=== PATIENT | female | born 2000 | race Caucasian/White ===

== ENCOUNTER 2019-08-22 14:22 | Emergency (ER) | payer BC, SELFPAY ==
[2019-08-22 14:28] VITALS: BP 144/80; PULSE 106; RESP 18; TEMP 37.3; O2SAT 99
--- NOTE | 2019-08-22 14:40 | ED.URI ---
HPI - URI/Sore Throat General Chief Complaint: Upper Respiratory Infection Stated Complaint: cough/sore throat/congestion/body aches Time Seen by Provider: 08/22/19 14:40 Source: patient and RN notes reviewed History of Present Illness HPI Narrative: Patient is a 18-year-old female presents the urgent care with complaints of cough, sore throat, sinus congestion, body aches. Patient states she has had chills and sweats without known fever. States her symptoms started 4 days ago and she cannot catch a break . 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 Patient has been using Mucinex and DayQuil without much relief. No other acute complaints. No acute distress noted. Patient read the plan of care. Related Data Home Medications Medication Instructions Recorded Confirmed HJ-HU-yavtnd/UE-nhmtgb-jwywbye cap PO 08/22/19 [Vicks DayQuil-NyQuil] guaifenesin [Mucinex] 1,200 mg PO Q12H 08/22/19 08/22/19 Allergies Allergy/AdvReac Type Severity Reaction Status Date / Time No Known Allergies Allergy Unknown Verified 08/22/19 14:34 Review of Systems Review of Systems: Narrative: CONSTITUTIONAL: Reports of chills and sweats EYES: Denies visual changes, redness, or discharge. ENT: Reports of rhinorrhea, sinus congestion, sore throat CARDIOVASCULAR: Denies chest pain, palpitations, or edema. RESPIRATORY: Reports of nonproductive cough without dyspnea GASTROINTESTINAL: Denies abdominal pain, nausea, vomiting, or diarrhea. GENITOURINARY: Denies dysuria or hematuria. SKIN: Denies rash or itching. MUSCULOSKELETAL: Denies back pain, joint pain, or myalgia. NEUROLOGIC: Denies headache, numbness, or weakness. All other systems reviewed are negative, except as documented in HPI. PMFSH Comments At the time of my signature, I reviewed and agree with the nursing past medical, surgical, social, and family history. There is no relevant family history pertinent to the patient complaint. Exam Narrative: Exam Narrative: GENERAL: This is a well-nourished, well-developed patient, in no apparent distress. HEAD: normocephalic, atraumatic. EYES: PERRL. Sclera clear/white. Vision is grossly intact. EARS: External ears normal, auditory canals clear and without drainage, TMs normal without perforation. Hearing grossly intact. NOSE: External nose normal with no obvious nasal discharge, nares without redness, no rhinorrhea. THROAT: Mucous membranes moist, posterior pharynx clear. Mild postnasal drainage NECK: Neck supple CARDIOVASCULAR: Regular rate and rhythm without murmurs, gallops, or rubs. RESPIRATORY: Clear to auscultation. Breath sounds equal bilaterally. No wheezes, rales, or rhonchi. SKIN: warm, intact with no suspicious lesions or rash, good texture and turgor. NEURO: awake, alert, and oriented to person, place and time. There were no obvious focal neurologic abnormalities. EXTREMITIES: No clubbing, cyanosis, or edema. Course Vital Signs Vital signs: Vital Signs Temperature 99.1 F 08/22/19 14:28 Pulse Rate 106 H 08/22/19 14:28 Respiratory Rate 18 08/22/19 14:28 Blood Pressure 144/80 H 08/22/19 14:28 Pulse Oximetry 99 08/22/19 14:28 Temperature 99.1 F 08/22/19 14:28 Pulse Rate 106 H 08/22/19 14:28 Respiratory Rate 18 08/22/19 14:28 Blood Pressure 144/80 H 08/22/19 14:28 Pulse Oximetry 99 08/22/19 14:28 Reviewed?patient is informed that they may have pre-hypertension or hypertension based on a blood pressure reading in the department. I recommend the patient call the primary care provider listed on their discharge instructions or a physician of their choice this week to arrange follow-up for further evaluation of possible pre-hypertension or hypertension. MDM - URI/Sore Throat MDM Narrative Medical decision making narrative: Advised the patient to use a multivitamin daily. Continue with vitamin C. Increase fluids and rest. Use a daily ant
== END 2019-08-22 14:50 | disposition home or self-care (01) ==
PROVIDERS: Emergency Provider Nurse Practitioner Family
DX: R05 Cough (principal); J06.9 Acute upper respiratory infection, unspecified; J45.909 Unspecified asthma, uncomplicated
CPT/HCPCS: 99213; G0463

== ENCOUNTER 2020-05-28 09:42 | Emergency (ER) | payer BC, SELFPAY ==
--- NOTE | 2020-05-28 09:48 | ED.GENADULT ---
HPI - General Adult General Chief complaint: Extremity Problem,Nontraumatic Stated complaint: back numbness/elevated bp/lt arm numbness Time Seen by Provider: 05/28/20 09:58 Source: patient and RN notes reviewed Mode of arrival: ambulatory Limitations: no limitations History of Present Illness HPI narrative: 19-year-old female presents with concern for chronic neck and shoulder muscle tension, occasional burning in those muscles, occasional feeling of numbness in her left upper arm. She denies any chest pain, shortness of breath, diaphoresis, left arm pain. She denies any injury, traumatic event. 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 Reports she takes ibuprofen, 2 tablets approximately 3 times weekly with no relief. She denies other intervention. She denies any headache, weakness in any extremity MD complaint: Muscle spasm Related Data Allergies Allergy/AdvReac Type Severity Reaction Status Date / Time No Known Allergies Allergy Unknown Verified 05/28/20 09:57 Review of Systems Review of Systems: Narrative: CONSTITUTIONAL: Denies malaise, chills, sweats, or fever. EYES: Denies visual changes CARDIOVASCULAR: Denies chest pain, palpitations, or edema. RESPIRATORY: Denies cough or dyspnea. SKIN: Denies redness, bruising, open skin MUSCULOSKELETAL: Reports neck and bilateral shoulder muscle tension NEUROLOGIC: Denies weakness, or headache. Reports intermittent numbness in the left upper arm All systems reviewed & are unremarkable except as noted in HPI and below PMFSH Comments At time of signature, agree with nursing past medical, surgical, social and family history. There is no relevant family history pertinent to the presenting complaint Exam Narrative: Exam Narrative: GENERAL: Well-appearing, well-nourished, and in no acute distress. HEAD: Normocephalic, atraumatic. EYES: PERRLA, conjunctivae clear ENT: Mucous membranes moist. NECK: Supple. No lymphadenopathy. No cervical tenderness CHEST: No respiratory distress. Speaks in full sentences. HEART: Regular rate and rhythm. EXTREMITIES: Bilateral upper extremities have normal range of motion, no edema, normal strength and sensation. SKIN: Warm, dry, no rash. NEURO: Alert and oriented x3. PSYCH: Normal mood and affect Course Course Emergency Course: Patient is aware of diagnosis, understands and agrees to treatment plan. Anticipatory guidance given. Patient agrees to follow-up as directed and is aware of reasons to seek care at the emergency department. Portions of this record may have been created with voice recognition software Vital Signs Vital signs: Vital Signs Temperature 98.1 F 05/28/20 09:49 Pulse Rate 104 H 05/28/20 09:49 Respiratory Rate 16 05/28/20 09:49 Blood Pressure 122/80 05/28/20 09:49 Pulse Oximetry 100 05/28/20 09:49 Temperature 98.1 F 05/28/20 09:49 Pulse Rate 104 H 05/28/20 09:49 Respiratory Rate 16 05/28/20 09:49 Blood Pressure 122/80 05/28/20 09:49 Pulse Oximetry 100 05/28/20 09:49 Reviewed. Patient has been instructed to follow up with her primary care provider within the next week regarding her elevated blood pressure today. Medical Decision Making MDM Narrative Medical decision making narrative: Exam findings show no acute concerns or changes; patient is non-toxic appearing and is in no distress. Patient is appropriate for outpatient treatment and follow-up. Differential Diagnosis Differential Diagnosis: Torticollis, C-spine injury, shoulder injury, cardiac event, muscle spasm Vital Signs Vital Signs: Vital Signs Temperature 98.1 F 05/28/20 09:49 Pulse Rate 104 H 05/28/20 09:49 Respiratory Rate 16 05/28/20 09:49 Blood Pressure 122/80 05/28/20 09:49 Pulse Oximetry 100 05/28/20 09:49 Temperature 98.1 F 05/28/20 09:49 Pulse Rate 104 H 05/28/20 09:49 Respiratory Rate 16 05/28/20 09:49 Blood Pressure 122/80 05/28/20 09:49 Pulse Oximetry 100 05/28/20 09:49
[2020-05-28 09:49] VITALS: BP 122/80; PULSE 104; RESP 16; TEMP 36.7; O2SAT 100
== END 2020-05-28 10:23 | disposition home or self-care (01) ==
PROVIDERS: Emergency Provider Nurse Practitioner
DX: M62.838 Other muscle spasm (principal)
CPT/HCPCS: 99213; G0463